=== PATIENT | female | born 1985 | race Caucasian/White ===

== ENCOUNTER 2016-11-04 13:28 | Emergency (ER) | payer MEDICAID, OTHER ==
[~2016-11-04] VITALS: Ht 172.7 cm; Wt 108.9 kg
[2016-11-04 13:31] VITALS: BP 143/97
== END 2016-11-04 17:37 | disposition left against medical advice (07) ==
LOC: ER 13:28
DX: R07.9 Chest pain, unspecified (principal); Z53.21 Procedure and treatment not carried out due to patient leaving prior to being seen by health care provider
CPT/HCPCS: 93005